=== PATIENT | female | born 1990 | race African-American/Black ===

== ENCOUNTER 2018-02-07 08:53 | Emergency (ER) | payer BC ==
[~2018-02-07] VITALS: Ht 152.4 cm; Wt 63.5 kg
[~2018-02-07 08:53] MED LIST: CHILDREN'S100 MG/51 PO; HYCET 7.5 MG-3473 ML PO
[2018-02-07 09:14] LABS: URINE CLARITY CLEAR; URINE COLOR YELLOW
[2018-02-07 09:15] LABS: URINE BILIRUBIN NEGATIVE (Negative); URINE BLOOD NEGATIVE (Negative); URINE GLUCOSE-RANDOM* NEGATIVE (Negative); URINE KETONES NEGATIVE (Negative); URINE LEUKOCYTES-REFLEX NEGATIVE (Negative); URINE NITRITE-REFLEX NEGATIVE (Negative); URINE PROTEIN (DIPSTICK) NEGATIVE (Negative); URINE UROBILINOGEN 0.2 E.U./dl (0.2-1.0)
[2018-02-07 09:41] LABS: ABSOLUTE NEUTROPHILS 4.8 thou/uL (1.4-8.2); BASOPHILS 0.3 % (0.0-2.0); EOSINOPHILS 0.9 % (0.0-3.0); HEMATOCRIT 42.3 % (37.0-47.0); HEMOGLOBIN 14.7 gm/dL (12.0-15.0); LYMPHOCYTES 20.4 % (24.0-44.0); MCH 28.4 pg (26.0-34.0); MCHC 34.6 g/dL (28.0-37.0); MCV 82.1 fL (80.0-100.0); MONOCYTES 7.2 % (1.0-8.0); PLATELET COUNT 297 thou/uL (150-400); POLYS 71.2 % (36.0-66.0); RBC 5.15 mil/uL (4.20-5.00); RDW 13.5 % (10.5-14.5); WBC 6.7 thou/uL (4.0-11.0)
[2018-02-07 09:43] LABS: CALCIUM 9.9 mg/dL (8.5-10.1); CREATININE 0.8 mg/dL (0.6-1.0); POTASSIUM 3.8 mmol/L (3.5-5.1)
[2018-02-07 09:49] LABS: ALBUMIN 4.5 g/dL (3.4-5.0); TOTAL BILIRUBIN 0.5 mg/dL (<0.1-1.0)
[2018-02-07] MEDS ORDERED: BENTYL 20 MG TA20 M1 PO (10:06)
[2018-02-07] MEDS ORDERED: SIMETHICON CHEW80 M1 PO (10:06)
[2018-02-07] MEDS ORDERED: PROTONIX40 M1 PO (10:06)
[2018-02-07 10:20] VITALS: BP 119/68
== END 2018-02-07 10:32 | disposition home or self-care (01) ==
LOC: ER 08:53
PROVIDERS: Emergency Medicine
DX: R10.13 Epigastric pain (principal)